=== PATIENT | female | born 2000 | race Two or more races ===

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

== ENCOUNTER 2021-04-09 10:48 | Emergency (ER) | payer OTHER ==
[~2021-04-09] VITALS: Ht 180.3 cm; Wt 89.8 kg
[~2021-04-09 10:48] MED LIST changes: +ALBUTEROL2.5 MG/3 M IH; +DUI500 PO; +MUCINEX; +PROVENTIL HFA6.7 GM IH; +SYMBICORT 16010.2 GM IH; +ZANTAC150 MG PO
[2021-04-09] MEDS ORDERED: KETO10TA2 PO (16:00)
== END 2021-04-09 16:57 | disposition home or self-care (01) ==
LOC: ER 10:48 → EMR PED 10:52 → ER 10:52 → EMR PED 16:57
DX: N83.292 Other ovarian cyst, left side (principal); R16.2 Hepatomegaly with splenomegaly, not elsewhere classified; R10.2 Pelvic and perineal pain

== ENCOUNTER 2021-04-27 18:56 | Emergency (ER) | payer OTHER ==
[~2021-04-27] VITALS: Ht 180.3 cm; Wt 90.7 kg
[~2021-04-27 18:56] MED LIST changes: +KETO10TA2 PO
== END 2021-04-27 21:31 | disposition home or self-care (01) ==
LOC: ER 18:56 → EMR PED 18:58
DX: J02.9 Acute pharyngitis, unspecified (principal); J98.8 Other specified respiratory disorders; M79.18 Myalgia, other site; Z03.818 Encounter for observation for suspected exposure to other biological agents ruled out

== ENCOUNTER 2024-03-09 14:44 | Emergency (ER) | payer OTHER ==
[~2024-03-09] VITALS: Ht 182.9 cm; Wt 115.7 kg
[2024-03-09] MEDS ORDERED: FAMOTIDINE/PF 20 MG in 0.9 % SODIUM CHLORIDE 8 ML IV PUSH STA (16:28)
[2024-03-09] MEDS ORDERED: RINGERS SOLUTION,LACTATED 1,000 ML IV SCH (16:30)
[2024-03-09] MEDS ORDERED: HYOSCYAMINE SULFATE 0.125 MG TAB.SUBL SL ONE (16:30)
[2024-03-09] MEDS ORDERED: ONDANSETRON HCL 2 MG/ML VIAL IV ONE (16:30)
[2024-03-09] MEDS ORDERED: ONDANSETRON HCL 2 MG/ML VIAL ONE ×2 (16:34→16:35)
[2024-03-09] MEDS ORDERED: FAMOTIDINE/PF 20 MG/2 ML VIAL ONE (16:34)
[2024-03-09] MEDS ORDERED: HYOSCYAMINE SULFATE 0.125 MG TAB.SUBL ONE (16:34)
[2024-03-09 17:16] LABS: HEMATOCRIT 34.9 % (36.0-45.00); HEMOGLOBIN 12.1 g/dL (12.0-15.00); MEAN CELL VOLUME 81.3 fL (80.00-100.00); MEAN CORPUSCULAR HEMOGLOBIN 28.1 pg (27.00-32.0); MEAN CORPUSCULAR HGB CONC 34.6 g/dl (32.0-36.0); PLATELET COUNT 212 K/uL (150-450)
[2024-03-09 17:47] LABS: ALBUMIN 3.2 gm/dL (3.4-5.0); BILIRUBIN TOTAL 0.43 mg/dL (0.3-1.2); CALCIUM 8.5 mg/dL (8.5-10.1); CREATININE SERUM 0.5 mg/dL (0.55-1.02); GFR 152.89; GLOBULINA 3.7 G/DL (2.4-3.5); POTASSIUM 3.48 mEq/L (3.5-5.1); TOTAL PROTEIN 6.9 gm/dL (6.4-8.2)
[2024-03-09 18:05] LABS: PH,URINE 5.5 (5.0-8.0); URINE APPEARANCE Clear; URINE BILIRRUBIN Negative (NEGATIVE); URINE BLOOD Negative; URINE COLOR Dark Yellow; URINE GLUCOSE Negative (NEGATIVE); URINE KETONE Negative (NEGATIVE); URINE LEUKOCYTE Negative; URINE NITRATE Negative; URINE PROTEIN Trace (NEGATIVE)
[2024-03-09 18:09] LABS: URINE CAST 0.45 uL (0.0-1.40); URINE EPITHELIAL CELLS 49.6 uL (0.0-38.8); URINE RBC 8.2 uL (0.0-20.8); URINE WBC 24.7 uL (0.0-23.2)
[2024-03-09] MEDS ORDERED: PEPCID AC20 MG PO (18:29)
[2024-03-09] MEDS ORDERED: ONDANSETRON ODT8 MG PO (18:29)
== END 2024-03-09 19:05 | disposition home or self-care (01) ==
LOC: ER 14:45
PROVIDERS: General Practice
DX: O21.0 Mild hyperemesis gravidarum (principal); Z3A.17 17 weeks gestation of pregnancy; R19.7 Diarrhea, unspecified; Z20.822 Contact with and (suspected) exposure to COVID-19; Z88.8 Allergy status to other drugs, medicaments and biological substances; Z91.013 Allergy to seafood

== ENCOUNTER 2024-04-10 03:09 | Emergency (ER) | payer OTHER ==
[~2024-04-10] VITALS: Ht 177.8 cm; Wt 90.7 kg
[~2024-04-10 03:09] MED LIST changes: +ONDANSETRON ODT8 MG PO; +PEPCID AC20 MG PO
[2024-04-10] MEDS ORDERED: CEFTRIAXONE SODIUM 1,000 MG VIAL IM STA (04:38)
[2024-04-10] MEDS ORDERED: LIDOCAINE HCL 4% Topic SOLUTION TOP STA (04:39)
== END 2024-04-10 04:46 | disposition home or self-care (01) ==
LOC: ER 03:11
DX: O26.892 Other specified pregnancy related conditions, second trimester (principal); H66.92 Otitis media, unspecified, left ear; Z3A.22 22 weeks gestation of pregnancy; Z91.013 Allergy to seafood; Z88.8 Allergy status to other drugs, medicaments and biological substances